=== PATIENT | female | born 1960 | race Caucasian/White ===

== ENCOUNTER 2016-09-03 09:13 | Outpatient (CLI) | payer BC | END 2016-09-03 09:14 | disposition home or self-care (01) | DX: M19.071 Primary osteoarthritis, right ankle and foot (principal); M77.31 Calcaneal spur, right foot; M79.671 Pain in right foot ==

== ENCOUNTER 2017-07-21 08:04 | Emergency (ER) | payer BC ==
--- NOTE | 2017-07-21 08:17 | ED Physician Documentation ---
History of Present Illness - Stated complaint Stated Complaint: CHEST PX/SOA - History obtained from History obtained from: Patient - History of Present Illness Timing: How many days ago (4) Pain level max: 7 Pain level now: 6 Quality: sharp Improved by: lying flat on her back. - Additonal information Additional information: Pt is a 56 year old female with R sided chest pain x 4 days. Worse with bending over and moving. Better with rest. Had a slight cough today and increased the pain. Review of Systems Constitutional: denies: Fever, Chills Ears: denies: Ear pain Nose: denies: Rhinorrhea / runny nose, Congestion Cardiac: denies: Chest pain / pressure, Calf pain Respiratory: denies: Hemoptysis, Wheezing GI: denies: Nausea, Vomiting, Diarrhea Skin: denies: Rash Musculoskeletal: denies: Neck pain, Back pain Neurologic: denies: Headache PD PAST MEDICAL HISTORY - Past Medical History Cardiovascular: Hypertension - Past Surgical History Past Surgical History: Yes /[employer]: Hysterectomy - Present Medications Home Medications: Ambulatory Orders Medication Instructions Recorded Confirmed HYDROcod/ACETAM 5/325 [[place] 5/325] 1 ea PO Q6H PRN #10 tablet 02/28/15 Ibuprofen [Motrin] 400 mg PO Q6H PRN #30 tablet 15 Ibuprofen [Motrin] 800 mg PO Q8H PRN #30 tablet 07/21/17 - Allergies Allergies/Adverse Reactions: Allergies Allergy/AdvReac Type Severity Reaction Status Date / Time No Known Drug Allergies Allergy Verified 07/21/17 08:18 - Social History Does the pt smoke?: Yes Smoking Status: Current every day smoker Does the pt drink ETOH?: Yes Does the pt have substance abuse?: No - Immunizations Immunizations are current?: Yes PD ED PE NORMAL - Vitals Vital signs reviewed: Yes - General General: Alert and oriented X 3, No acute distress, Well developed/nourished - HEENT HEENT: PERRL, Moist mucous membranes - Neck Neck: Supple, no meningeal sign - Cardiac Cardiac: RRR, Strong equal pulses - Respiratory Respiratory: No respiratory distress, Clear bilaterally, Other (TTP over R anterior chest wall, reproduces pain) - Abdomen Abdomen: Soft, Non tender, Non distended - Derm Derm: Warm and dry, No rash - Extremities Extremities: No edema, No calf tenderness / cord - Neuro Neuro: Alert and oriented X 3 - Psych Psych: Normal mood, Normal affect Results - Vitals Vitals: Vital Signs - 24 hr 07/21/17 07/21/17 08:06 09:53 Temperature 36.7 C Heart Rate 88 78 Respiratory 18 16 Rate Blood Pressure 125/78 128/80 O2 Saturation 98 Oxygen O2 Source Room air - EKG (time done) 0810 Rate: Rate (enter#) (83) Rhythm: NSR [place]: Normal Intervals: Other (short [place]) QRS: Normal Ischemia: Normal ST segments - Labs Labs: Laboratory Tests 07/21/17 07/21/17 07/21/17 08:21 08:21 08:21 WBC 6.2 RBC 3.95 L Hgb 13.6 Hct 40.2 MCV 101.9 H MCH 34.5 H MCHC 33.9 RDW 12.6 Plt Count 317 MPV 7.1 L Neut # 3.1 Lymph # 2.2 [place] # 0.7 Eos # 0.1 Baso # 0.0 Absolute Nucleated RBC 0.00 Nucleated RBC % 0.0 Sodium 137 Potassium 4.3 Chloride 105 Carbon Dioxide 24 Anion Gap 8.0 BUN 17 Creatinine 1.0 Estimated GFR (MDRD) 57 L Glucose 93 Calcium 9.1 Total Bilirubin 0.3 AST 19 ALT 14 Alkaline Phosphatase 69 Troponin I < 0.04 Total Protein 7.0 Albumin 3.7 Globulin 3.3 Albumin/Globulin Ratio 1.1 Lipase 26 - Rads (name of study) cxr Radiology: Prelim report reviewed, EMP read contemporaneously, See rad report ( normal) PD MEDICAL DECISION MAKING - ED course Complexity details: reviewed results, re-evaluated patient, considered differential (No ST elevation [place], no aortic dissection, no PE, no tension pneumothorax, no aortic aneurysm), d/w patient ED course: Patient is a 56-year-old female who presents to the emergency department with right anterior chest wall pain. Worse with palpation and movement. Appears to be musculoskeletal. No evidence of cardiac etiology. Patient counseled regarding signs and symptoms for which I believe and urgent re-evaluation would be necessary. Patient with good understanding of and agreement to plan and is comfortable going home at this time This document was made in part using voice recognition software. While efforts are made to proofread this document, sound alike and grammatical errors may occur. Departure - Departure Disposition: 01 Home, Self Care Clinical Impression: Costochondritis Condition: Good Instructions: ED Chest Pain Costochondritis Follow-Up: Ap Prado MD [Primary Care Provider] - Within 1 week Prescriptions: Ibuprofen [Motrin] 800 mg PO Q8H PRN #30 tablet PRN Reason: PAIN &/OR FEVER Comments: Return if you worsen. This should improve over the next few days. Follow-up with your doctor for further evaluation and care Discharge Date/Time: 07/21/17 09:54
[2017-07-21 08:28] LABS: BASOPHILS % (AUTO) 0.7 %; EOSINOPHILS # (AUTO) 0.1 10^3/uL (0.0-0.7); HGB - HEMOGLOBIN 13.6 g/dL (12.0-16.0); LYMPHOCYTES # (AUTO) 2.2 10^3/uL (1.5-3.5); LYMPHOCYTES % (AUTO) 36.4 %; MEAN CORPUSCULAR HEMOGLOBIN 34.5 pg (27.0-31.0); MEAN CORPUSCULAR HGB CONC 33.9 g/dL (32.0-36.0); MEAN CORPUSCULAR VOLUME 101.9 fL (81.0-99.0); MEAN PLATELET VOLUME 7.1 fL (7.9-10.8); MONOCYTES # (AUTO) 0.7 10^3/uL (0.0-1.0); MONOCYTES % (AUTO) 11.2 %; NEUTROPHILS # (AUTO) 3.1 10^3/uL (1.5-6.6); NEUTROPHILS % (AUTO) 50.7 %; PLT - PLATELET COUNT 317 10^3/uL (130-450); RED BLOOD COUNT 3.95 10^6/uL (4.20-5.40); RED CELL DISTRIBUTION WIDTH 12.6 % (12.0-15.0); WHITE BLOOD COUNT 6.2 x10^3/uL (4.8-10.8)
[2017-07-21 08:41] LABS: ALBUMIN 3.7 g/dL (3.2-5.5); ALBUMIN/GLOBULIN RATIO 1.1 (1.0-2.2); BILIRUBIN,TOTAL 0.3 mg/dL (0.2-1.0); CALCIUM 9.1 mg/dL (8.5-10.3)
--- NOTE | 2017-07-21 08:48 | XRAY Report ---
EXAM: CHEST RADIOGRAPHY EXAM DATE: 07/21/2017 08:40 AM. CLINICAL HISTORY: Right sided lateral chest pain. History of pneumonia. Shortness of breath. COMPARISON: 02/28/2015. TECHNIQUE: 2 views. FINDINGS: Lungs/Pleura: No focal opacities evident. No pleural effusion. No pneumothorax. Normal volumes. Mediastinum: Heart size is normal. Aorta is mildly tortuous. Other: Mild degenerative changes of the thoracic spine. IMPRESSION: 1. No acute disease in the chest. [facility] Referring Provider Line: [phone] SITE ID: [id number]
[2017-07-21] MEDS: DEXAMETHASONE 10 MG/ML VIAL IVP STA ×2 (09:33→09:42)
[2017-07-21] MEDS: KETOROLAC 60 MG/2 ML VIAL IVP STA ×2 (09:33→09:42)
[2017-07-21] MEDS ORDERED: DEXAMETHASONE 10 MG/ML VIAL PO STA (09:41)
[2017-07-21] MEDS ORDERED: CHERRY SYRUP 10 ML UDC PO ONE (09:53)
[2017-07-21 09:54] VITALS: BP 128/80
== END 2017-07-21 09:54 | disposition home or self-care (01) ==
LOC: ED 08:04
DX: M94.0 Chondrocostal junction syndrome [Tietze] (principal); I10 Essential (primary) hypertension; F17.200 Nicotine dependence, unspecified, uncomplicated
CPT/HCPCS: 36415; 71046; 80053; 83690; 84484; 85025; 93005; 99283; A9270